=== PATIENT | male | born 1940 | race Hispanic/Latino ===

== ENCOUNTER → 2017-11-18 | Day surgery (SDC) | payer MEDICARE, OTHER ==
[~2017-11-18] MED LIST: ACETAMINOP325 MG/10 PO; CEFTRIAXONE SOD 1 GM VIAL ONE; DEXAMETHASONE SOD PHOS INJ 4 MG/ML VIAL ONE; FENTANYL CITRATE/PF 100MCG/2 ML INJ ONE; HYDRALAZINE HCL 20 MG/ML VIAL ONE; LIDOCAINE HCL 2% LOCAL INJ 5 ML SDV VIAL INJ ONE; MELATONIN5 M2 PO; METOPROLOL SUCC25 MG; METOPROLOL TART25 MG PO; NAMENDA10 MG PO; NAMENDA5 MG PO; ONDANSETRON HCL INJ 2 MG/ML VIAL ONE; PROPOFOL IV EMULSION 10 MG/ML 20 ML VIAL ONE; QUETIAPINE FUMA25 MG PO; SEVOFLURANE INHAL SOLN 250 ML PEN BTL ONE; SINEMET 25-1001 EACH PO; TAMSULOSIN HCL0.4 MG PO
--- NOTE | 2017-11-18 10:31 | Diagnostic Imaging Report ---
PROCEDURE: A single AP view of the chest. COMPARISON: None. INDICATIONS: PRE-OP PROSTATE SURGERY FINDINGS: Lines/tubes: None. Lungs: Moderate lung inflation. There is no evidence of pneumonia or pulmonary edema. Mild patchy left basilar opacity, likely atelectasis. Pleura: There is no pleural effusion or pneumothorax. Heart and mediastinum: The cardiomediastinal silhouette is unremarkable. Bones: No acute bony abnormality. Degenerative changes of bilateral shoulders. IMPRESSION: No acute radiographic abnormality. Dictated by: FAMILIA EASLEY M.D. on 11/18/2017 at 10:39 Electronically approved by: FAMILIA EASLEY M.D. on 11/18/2017 at 10:39
[2017-11-18 14:30] VITALS: BP 164/79
--- NOTE | 2017-11-19 07:11 | Operative Report ---
DATE OF PROCEDURE: November 18, 2017 PREOPERATIVE DIAGNOSES 1. Chronic balanitis. 2. Severe phimosis. 3. Benign prostatic hypertrophy. 4. Prostatic obstruction. POSTOPERATIVE DIAGNOSES 1. Chronic balanitis. 2. Severe phimosis. 3. Benign prostatic hypertrophy. 4. Prostatic obstruction. OPERATIONS PERFORMED 1. Circumcision. 2. Cystourethroscopy. 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 ANESTHETIC: General. Mr. Sadler is a 77-year-old male who was referred by Dr. Dvaid Gamboa with a chief complaint of severe chronic balanitis and prostatic obstruction. This patient was placed on the table in the supine position and was prepped and draped in a sterile manner after satisfactory anesthesia. A collar incision was made about 2 mm proximal to the munguia, incising the skin of the penis. Another collar incision over the chronically infected balanitic foreskin all around, and the infected skin was excised. Hemostasis was obtained all through using the electrocautery at very low power. Both skin edges were then approximated interruptedly using 4-0 Vicryl. Hemostasis was obtained all through and was very adequate. A flexible cystoscopy was then performed, and the urethra was noted to be normal. The prostatic urethra was about 2.5 cm, bilobar and occlusive. Cystoscopy was then performed, and it was noted that the bladder mucosa was normal with no evidence of gross tumor, pathology or any papillary lesions. The bladder wall was moderately trabeculated. Both ureteral orifices were seen and were within normal position, configuration, efflux. The cystoscope was removed. Patient tolerated the procedure well and was taken to the recovery room in satisfactory condition. Plans for this patient are to be placed on Cipro 250 mg 1 twice a day for 1 week. Ultracet tablet 1 every 6 to 8 hours p.r.n. and was given 15. He is to return to the office in about 2 weeks when at that time plans will be made for TURP laser. Job#: [id number]
== END | disposition home or self-care (01) ==
LOC: OR 08:57
PROVIDERS: ATTEND Specialist
DX: N48.1 Balanitis (principal); N47.1 Phimosis; N40.1 Benign prostatic hyperplasia with lower urinary tract symptoms; N13.8 Other obstructive and reflux uropathy; N32.89 Other specified disorders of bladder; G20 Parkinson's disease; I10 Essential (primary) hypertension; D64.9 Anemia, unspecified; I45.10 Unspecified right bundle-branch block; Z86.718 Personal history of other venous thrombosis and embolism
CPT/HCPCS: 52000; 54161; 71045; 88304; J0360; J0696; J1100; J2001; J2405; 88305

== ENCOUNTER → 2017-12-09 | Day surgery (SDC) | payer MEDICARE, OTHER ==
[~2017-12-09] MED LIST changes: -CEFTRIAXONE SOD 1 GM VIAL ONE; +EPHEDRINE SULFATE INJ 50 MG/10 ML SYR ONE; +FUROSEMIDE INJ 10 MG/ML 4 ML VIAL ONE; +HYOSCYAMINE 0.125 MG TAB ONE; +IOPAMIDOL 610MG/1ML 300 MG/ML VIAL IV ONE; +LEVOFLOXACIN 500MG/D5W 100ML 100 ML IV ONE; +SODIUM CHLORIDE 0.9% 1000ML 1,000 ML ONE
--- OUTSIDE RECORDS SUMMARY | 2017-12-09 08:00 | XMS REPORT | Clinical Summary ---
Author Author [facility] Organization [facility] Address Unknown Phone Unavailable Care Team Providers Care Chief Wheelage Clerk Name Role Phone David Gamboa MD PCP Allergies No Known Allergies Current Medications Prescription Sig. Disp. Refills Start End Date Status Date carbidopa-levodopa Take 1 tablet by mouth 3 Active (SINEMET) 25-100 mg per (three) times a day. tablet benazepril (LOTENSIN) 40 Take 40 mg by mouth daily 03/26/19 05/14/19 Discontin MG tablet before breakfast. 18 18 ued NIFEdipine XL (PROCARDIA Take 30 mg by mouth daily 04/05/19 05/14/19 Discontin XL) 30 MG 24 hr tablet before breakfast. 18 18 ued dextromethorphan-quinidin Take 1 capsule by mouth. 05/14/19 Discontin e (NUEDEXTA) 20-10 mg 18 ued capsule sotalol (BETAPACE) 80 MG Take 80 mg by mouth 2 05/14/19 Discontin tablet (two) times a day. 18 ued acetaminophen (TYLENOL) Take 1 tablet (325 mg 120 tablet 0 05/14/19 06/13/19 325 MG tablet total) by mouth 4 (four) 18 18 times a day for 30 days. citalopram (CeleXA) 20 MG Take 1 tablet (20 mg 30 tablet 0 05/14/19 06/13/19 tablet total) by mouth nightly 18 18 for 30 days. lidocaine (LIDODERM) 5 % Place 1 patch on the skin 30 patch 0 05/15/19 06/14/19 daily for 30 days. Remove 18 18 & Discard patch within 12 hours or as directed by MD fuller (CYTOMEL) 5 Take 1 tablet (5 mcg 30 tablet 0 05/15/19 06/14/19 MCG tablet total) by mouth daily for 18 18 30 days. sennosides-docusate Take 2 tablets by mouth 05/14/19 06/13/19 sodium (SENNA WITH nightly as needed for 18 18 DOCUSATE SODIUM) 8.6-50 constipation for up to 30 mg per tablet days. Active Problems Problem Noted Date Parkinson disease (HCC) 05/07/2017 Debility 05/05/2017 Hyperkalemia 05/02/2017 Encounters Date Type Specialty Care Team Description 11/16/2017 Orders Only Procedural Cardiology Last Stevens Preoperative testing (Primary Dx) 11/10/2017 Hospital Radiology Anthony Benitez, Enlarged prostate with Encounter urinary obstruction 10/21/2017 Transcribe Access Anthony Benitez Enlarged prostate with Orders urinary obstruction (Primary Dx) 05/13/2017 Social Work Rehabilitation Karlie Noyola 05/05/2017 [facility] Rehabilitation Brendan Parry MD Parkinson disease - Encounter (Primary Dx) 05/13/2017 05/02/2017 [facility] General Internal Medicine Austin Ross MD Hyperkalemia (Primary - Encounter Sabino Pedro MD Dx); 05/05/2017 Acute renal failure, unspecified acute renal failure type; Dehydration; Syncope and collapse; Hypotension, unspecified hypotension type after 12/08/2016 Social History Tobacco Use Types Packs/Day Years Used Date Never Smoker Smokeless Tobacco: Never Used Tobacco Cessation: Counseling Given: No Alcohol Use Drinks/Week oz/Week Comments No Sex Assigned at Date Recorded Not on file Last Filed Vital Signs Vital Sign Reading Time Taken Blood Pressure 128/78 05/13/2017 8:09 AM CDT Pulse 68 05/13/2017 8:09 AM CDT Temperature 36.3 C (97.4 F) 05/13/2017 8:09 AM CDT Respiratory Rate 20 05/13/2017 8:09 AM CDT Oxygen Saturation 96% 05/12/2017 8:07 PM CDT Inhaled Oxygen - - Concentration Weight 83.1 kg (183 lb 4.8 oz) 05/10/2017 6:27 AM CDT Height 172.7 cm (5' 8") 05/05/2017 8:11 PM CDT Body Mass Index 27.87 05/10/2017 6:27 AM CDT Plan of Treatment Health Maintenance Due Date Last Done Comments SHINGRIX VACCINE (#1) 1989 ZOSTER VACCINE 1999 PNEUMOCOCCAL 01/20/2004 POLYSACCHARIDE VACCINE AGE 65 AND OVER PNEUMOCOCCAL-13 01/20/2004 INFLUENZA VACCINE 09/16/2017 Procedures Procedure Name Priority Date/Time Associated Diagnosis Comments ECG 12-LEAD Routine 11/16/2017 Preoperative testing Results for this 12:29 PM CDT procedure are in the results section. US PROSTATE Routine 11/10/2017 Enlarged prostate with Results for this 2:12 PM CDT urinary obstruction procedure are in the results section. ZZESTIMATED GFR Routine 05/13/2017 Results for this 4:48 AM CDT procedure are in the results section. BASIC METABOLIC PANEL Routine 05/13/2017 Results for this 4:48 AM CDT procedure are in the results section. HC COMPLETE BLD COUNT Routine 05/13/2017 Results for this W/AUTO DIFF 4:48 AM CDT procedure are in the results section. POC GLUCOSE Routine 05/11/2017 Results for this 8:45 AM CDT procedure are in the results section. ZZESTIMATED GFR Routine 05/11/2017 Results for this 4:45 AM CDT procedure are in the results section. THYROID STIMULATING Routine 05/11/2017 Results for this HORMONE 4:45 AM CDT procedure are in the results section. T4, FREE Routine 05/11/2017 Results for this 4:45 AM CDT procedure are in the results section. T3, FREE Routine 05/11/2017 Results for this 4:45 AM CDT procedure are in the results section. BASIC METABOLIC PANEL Routine 05/11/2017 Results for this 4:45 AM CDT procedure are in the results section. HC COMPLETE BLD COUNT Routine 05/11/2017 Results for this W/AUTO DIFF 4:45 AM CDT procedure are in the results section. ZZESTIMATED GFR Routine 05/10/2017 Results for this 4:45 AM CDT procedure are in the results section. BASIC METABOLIC PANEL Routine 05/10/2017 Results for this 4:45 AM CDT procedure are in the results section. ZZESTIMATED GFR Routine 05/06/2017 Results for this 6:22 AM CDT procedure are in the results section. HC COMPLETE BLD COUNT Routine 05/06/2017 Results for this W/AUTO DIFF 6:22 AM CDT procedure are in the results section. BASIC METABOLIC PANEL Routine 05/06/2017 Results for this 6:22 AM CDT procedure are in the results section. ZZESTIMATED GFR Routine 05/05/2017 Results for this 6:59 AM CDT procedure are in the results section. HC COMPLETE BLD COUNT Routine 05/05/2017 Results for this W/AUTO DIFF 6:59 AM CDT procedure are in the results section. BASIC METABOLIC PANEL Routine 05/05/2017 Results for this 6:59 AM CDT procedure are in the results section. ZZESTIMATED GFR Routine 05/04/2017 Results for this 5:43 AM CDT procedure are in the results section. PROSTATE SPECIFIC ANTIGEN Routine 05/04/2017 Results for this 5:43 AM CDT procedure are in the results section. HC COMPLETE BLD COUNT Routine 05/04/2017 Results for this W/AUTO DIFF 5:43 AM CDT procedure are in the results section. BASIC METABOLIC PANEL Routine 05/04/2017 Results for this 5:43 AM CDT procedure are in the results section. URINALYSIS SCREEN AND Routine 05/03/2017 Results for this MICROSCOPY, WITH REFLEX 5:36 PM CDT procedure are in the TO CULTURE results section. URINE CULTURE Routine 05/03/2017 Results for this 5:36 PM CDT procedure are in the results section. ZZESTIMATED GFR Routine 05/03/2017 Results for this 4:01 AM CDT procedure are in the results section. COMPREHENSIVE METABOLIC Routine 05/03/2017 Results for this PANEL 4:01 AM CDT procedure are in the results section. HC COMPLETE BLD COUNT Routine 05/03/2017 Results for this W/AUTO DIFF 4:01 AM CDT procedure are in the results section. THYROID STIMULATING Routine 05/03/2017 Results for this HORMONE 4:01 AM CDT procedure are in the results section. T4, FREE Routine 05/03/2017 Results for this 4:01 AM CDT procedure are in the results section. T3, FREE Routine 05/03/2017 Results for this 4:01 AM CDT procedure are in the results section. TROPONIN Timed 05/02/2017 Results for this 7:36 PM CDT procedure are in the results section. XR CHEST 1 VW PORTABLE STAT 05/02/2017 Results for this 4:57 PM CDT procedure are in the results section. ECG 12-LEAD STAT 05/02/2017 Results for this 4:09 PM CDT procedure are in the results section. CT HEAD WO CONTRAST STAT 05/02/2017 Results for this 4:04 PM CDT procedure are in the results section. LACTIC ACID LEVEL, SEPSIS STAT 05/02/2017 Results for this - NOW AND REPEAT 2X EVERY 3:47 PM CDT procedure are in the 3 HOURS results section. ZZESTIMATED GFR STAT 05/02/2017 Results for this 3:47 PM CDT procedure are in the results section. CREATINE KINASE, TOTAL STAT 05/02/2017 Results for this (CPK) 3:47 PM CDT procedure are in the results section. TROPONIN STAT 05/02/2017 Results for this 3:47 PM CDT procedure are in the results section. COMPREHENSIVE METABOLIC STAT 05/02/2017 Results for this PANEL 3:47 PM CDT procedure are in the results section. PARTIAL THROMBOPLASTIN STAT 05/02/2017 Results for this TIME (PTT) 3:47 PM CDT procedure are in the results section. PROTHROMBIN TIME WITH INR STAT 05/02/2017 Results for this 3:47 PM CDT procedure are in the results section. HC COMPLETE BLD COUNT STAT 05/02/2017 Results for this W/AUTO DIFF 3:47 PM CDT procedure are in the results section. ECG ED PRELIMINARY Routine 05/02/2017 Results for this INTERPRETATION 3:22 PM CDT procedure are in the results section. after 12/08/2016 Results * ECG 12 lead (11/16/2017 12:29 PM) Only the most recent of 2 results within the time period is included. Ventricular rate 58 [facility] Atrial rate 58 [facility] VT interval 106 [facility] QRSD interval 138 [facility] QT interval 438 [facility] QTC interval 429 [facility] P axis 1 30 [facility] QRS axis 1 270 [facility] T wave axis 20 [facility] EKG impression Sinus bradycardia with short [facility] VT-Left axis deviation-Right bundle branch block-Possible Lateral infarct (cited on or before 02-MAY-2017)-Inferior infarct (cited on or before 02-MAY-2017)-Abnormal ECG-In automated comparison with ECG of 02-MAY-2017 16:09,-Left anterior fascicular block is no longer present-Right bundle branch block is now present-Questionable change in initial forces of Lateral leads- Performing Organization Address City/State/Zipcode Phone Number [facility] [place] [address] [place] [address] * US Prostate (11/10/2017 2:12 PM) Narrative Performed At PROCEDURE:US PROSTATE RADIANT CLINICAL HISTORY:N40.1 Benign prostatic hyperplasia with lower urinary tract symptoms, N13.8 Other obstructive and reflux uropathy, N40.1 COMPARISON:None. TECHNIQUE: A transrectal examination of the prostate gland was performed in transverse and sagittal views with color-flow Doppler interrogation. The seminal vesicles were also interrogated. FINDINGS: The prostate gland measures 4.6 cm x 5 cm x 2.2 cm for volume of 26.9 mL. The peripheral zone is homogeneous. No focal lesions are identified. Heterogeneity in echotexture is demonstrated of the central zone with calcification of the prostate at the junction of the central and peripheral zone. No gross abnormality of the seminal vesicles is seen. IMPRESSION: Abnormal study. Mild prostatic enlargement with prostatic calcification. No focal lesions are identified in the peripheral zone. No gross abnormality of the seminal vesicles is seen. [id number] . Procedure Note Interface, Radiology Results Incoming - 11/10/2017 3:22 PM CDT PROCEDURE: US PROSTATE CLINICAL HISTORY: N40.1 Benign prostatic hyperplasia with lower urinary tract symptoms, N13.8 Other obstructive and reflux uropathy, N40.1 COMPARISON: None. TECHNIQUE: A transrectal examination of the prostate gland was performed in transverse and sagittal views with color-flow Doppler interrogation. The seminal vesicles were also interrogated. FINDINGS: The prostate gland measures 4.6 cm x 5 cm x 2.2 cm for volume of 26.9 mL. The peripheral zone is homogeneous. No focal lesions are identified. Heterogeneity in echotexture is demonstrated of the central zone with calcification of the prostate at the junction of the central and peripheral zone. No gross abnormality of the seminal vesicles is seen. IMPRESSION: Abnormal study. Mild prostatic enlargement with prostatic calcification. No focal lesions are identified in the peripheral zone. No gross abnormality of the seminal vesicles is seen. [id number] . Performing Organization Address City/State/Zipcode Phone Number [place] [address] [place] [address] * Estimated GFR (05/13/2017 4:48 AM) Only the most recent of 8 results within the time period is included. GFR Non Af Amer 39 (A) mL/min/1.73 m2 [facility] DEPARTMENT OF PATHOLOGY AND GENOMIC MEDICINE GFR Af Amer 47 (A) mL/min/1.73 m2 [facility] DEPARTMENT OF Comment: PATHOLOGY AND Chronic kidney disease: <60 GENOMIC MEDICINE mL/min/1.73m2 Kidney failure: <15 mL/min/1.73m2 The estimated GFR is calculated from the IDMS-traceable Modification of Diet in Renal Disease Equation. The accuracy of the calculation is poor when the creatinine is normal. Calculated values >90 mL/min/1.73m2 are not reported. This equation has not been validated in children (<18 years), women, the elderly (>70 years), or ethnic groups other than Caucasians and Americans. Specimen Plasma specimen Performing Organization Address City/State/Zipcode Phone Number [place] [address] [place] [address] PATHOLOGY AND [employer] [facility] * CBC with platelet and differential (05/13/2017 4:48 AM) Only the most recent of 7 results within the time period is included. WBC 9.4 4.2 - 11.0 k/uL [facility] DEPARTMENT OF PATHOLOGY AND GENOMIC MEDICINE RBC 4.45 4.04 - 5.86 m/uL [facility] DEPARTMENT OF PATHOLOGY AND GENOMIC MEDICINE HGB 13.1 13.0 - 17.3 g/dL [facility] DEPARTMENT OF PATHOLOGY AND GENOMIC MEDICINE HCT 41.2 34.0 - 45.0 % [facility] DEPARTMENT OF PATHOLOGY AND GENOMIC MEDICINE MCV 92.6 80.0 - 98.0 fL [facility] DEPARTMENT OF PATHOLOGY AND GENOMIC MEDICINE MCH 29.4 27.0 - 34.0 pg [facility] DEPARTMENT OF PATHOLOGY AND GENOMIC MEDICINE MCHC 31.8 31.5 - 36.5 g/dL [facility] DEPARTMENT OF PATHOLOGY AND GENOMIC MEDICINE RDW - SD 50.0 37.0 - 51.0 fL [facility] DEPARTMENT OF PATHOLOGY AND GENOMIC MEDICINE MPV 10.1 7.4 - 10.4 fL [facility] DEPARTMENT OF PATHOLOGY AND GENOMIC MEDICINE Platelet count 227 150 - 400 k/uL [facility] DEPARTMENT OF PATHOLOGY AND GENOMIC MEDICINE Nucleated RBC 0.00 /100 WBC [facility] DEPARTMENT OF PATHOLOGY AND [employer] MEDICINE Neutrophils 72.4 (H) 36.0 - 66.0 % [facility] DEPARTMENT OF PATHOLOGY AND [employer] MEDICINE Lymphocytes 13.7 (L) 24.0 - 44.0 % [facility] DEPARTMENT OF PATHOLOGY AND GENOMIC MEDICINE Monocytes 9.6 (H) 0.0 - 6.0 % [facility] DEPARTMENT OF PATHOLOGY AND [employer] MEDICINE Eosinophils 2.4 0.0 - 6.0 % [facility] DEPARTMENT PATHOLOGY AND [employer] MEDICINE Basophils 0.4 0.0 - 1.2 % [facility] PATHOLOGY AND [employer] MEDICINE Immature granulocytes 1.5 (H) 0.0 - 1.0 % [facility] PATHOLOGY AND [employer] MEDICINE Specimen Blood Performing Organization Address City/[facility]/Zipcode Phone Number [address] [place] [phone] [place] [address] * Basic metabolic panel (05/13/2017 4:48 AM) Only the most recent of 6 results within the time period is included. Sodium 134 (L) 135 - 150 mEq/L [facility] DEPARTMENT OF PATHOLOGY AND [employer] MEDICINE Potassium 4.4 3.5 - 5.0 mEq/L [facility] DEPARTMENT OF PATHOLOGY AND [employer] MEDICINE Chloride 100 100 - 109 mEq/L [facility] DEPARTMENT PATHOLOGY AND [employer] MEDICINE CO2 25 24 - 32 mmol/L [facility] DEPARTMENT PATHOLOGY AND [employer] MEDICINE Anion gap 9 7 - 15 mEq/L [facility] DEPARTMENT OF Comment: PATHOLOGY AND Starting from May [facility] , anion gap calculation no longer incorporates potassium. Please note the change. BUN 38 (H) 7 - 18 mg/dL [facility] DEPARTMENT OF PATHOLOGY AND [employer] MEDICINE Creatinine 1.7 (H) 0.8 - 1.5 mg/dL [facility] DEPARTMENT OF PATHOLOGY AND [employer] MEDICINE Glucose 92 65 - 100 mg/dL [facility] DEPARTMENT PATHOLOGY AND [employer] MEDICINE Calcium 8.9 8.6 - 10.7 mg/dL [facility] DEPARTMENT PATHOLOGY AND [employer] MEDICINE Specimen Plasma specimen Performing Organization Address City/[facility]/Zipcode Phone Number [address] [place] [phone] [place] [address] [employer] [facility] * POC glucose (05/11/2017 8:45 AM) POC glucose 115 (H) 65 - 100 mg/dL [facility] DEPARTMENT OF Comment: PATHOLOGY AND Meter ID: [id number] GENOMIC MEDICINE Bi Application Developer: Zayra Macedo Performing Organization Address City/[facility] Phone Number [facility] [address] [place] [address] PATHOLOGY AND GENOMIC MEDICINE * T3, free (05/11/2017 4:45 AM) Only the most recent of 2 results within the time period is included. T3, free 2.65 2.18 - 3.98 pmol/L [facility] DEPARTMENT OF PATHOLOGY AND GENOMIC MEDICINE Specimen Plasma specimen Performing Organization Address [facility] [place] [address] PATHOLOGY AND GENOMIC MEDICINE * Thyroid stimulating hormone (05/11/2017 4:45 AM) Only the most recent of 2 results within the time period is included. TSH 0.37 (L) 0.38 - 4.82 uIU/mL [facility] DEPARTMENT OF PATHOLOGY AND GENOMIC MEDICINE Specimen Plasma specimen Performing Organization Address [facility] [place] [address] PATHOLOGY AND GENOMIC MEDICINE * T4, free (05/11/2017 4:45 AM) Only the most recent of 2 results within the time period is included. T4, free 1.60 0.70 - 1.61 ng/dL [facility] DEPARTMENT OF PATHOLOGY AND GENOMIC MEDICINE Specimen Plasma specimen Performing Organization Address [facility] [place] [address] PATHOLOGY AND GENOMIC MEDICINE * Prostate specific antigen (05/04/2017 5:43 AM) PSA 1.2 0.0 - 4.0 ng/mL [facility] DEPARTMENT OF Comment: PATHOLOGY AND The ISABEL 8000 PSA immunoassay [facility] was used. Results obtained with different assay methods or kits should not be used interchangeably and may be different. Specimen Plasma specimen Performing Organization Address City/[facility] Centercode Phone Number [facility] DEPARTMENT [address] [place] [address] PATHOLOGY AND GENOMIC MEDICINE * Urinalysis screen and microscopy, with reflex to culture (05/03/2017 5:36 PM) Specimen site Clean catch [facility] DEPARTMENT OF PATHOLOGY AND GENOMIC MEDICINE Color, UA Yellow [facility] DEPARTMENT OF PATHOLOGY AND GENOMIC MEDICINE Appearance, UA Clear [facility] DEPARTMENT OF PATHOLOGY AND GENOMIC MEDICINE Specific gravity, UA 1.016 1.001 - 1.035 [facility] DEPARTMENT OF PATHOLOGY AND GENOMIC MEDICINE pH, UA 5.0 5.0 - 8.5 [facility] DEPARTMENT OF PATHOLOGY AND GENOMIC MEDICINE Protein, UA Negative Negative [facility] DEPARTMENT OF PATHOLOGY AND GENOMIC MEDICINE Glucose, UA 1+ (A) Negative [facility] DEPARTMENT OF PATHOLOGY AND GENOMIC MEDICINE Ketones, UA Negative Negative [facility] DEPARTMENT OF PATHOLOGY AND GENOMIC MEDICINE Bilirubin, UA Negative Negative [facility] DEPARTMENT OF PATHOLOGY AND GENOMIC MEDICINE Blood, UA Small (A) Negative [facility] DEPARTMENT OF PATHOLOGY AND GENOMIC MEDICINE Nitrite, UA Negative Negative [facility] DEPARTMENT OF PATHOLOGY AND GENOMIC MEDICINE Urobilinogen, UA Negative <2.0 [facility] DEPARTMENT OF PATHOLOGY AND GENOMIC MEDICINE Leukocyte esterase, UA Negative Negative [facility] DEPARTMENT OF PATHOLOGY AND GENOMIC MEDICINE Epithelial cells, UA Few /HPF [facility] DEPARTMENT OF PATHOLOGY AND GENOMIC MEDICINE Round epithelial cells, Few 0 - 1 /HPF [facility] DEPARTMENT OF PATHOLOGY AND GENOMIC MEDICINE WBC, UA 3 (H) 0 - 1 /HPF [facility] DEPARTMENT OF PATHOLOGY AND GENOMIC MEDICINE RBC, UA 2 0 - 1 /HPF [facility] DEPARTMENT OF PATHOLOGY AND GENOMIC MEDICINE Bacteria, UA None seen None seen [facility] DEPARTMENT OF PATHOLOGY AND GENOMIC MEDICINE WBC clumps, UA Few (A) [facility] DEPARTMENT OF PATHOLOGY AND GENOMIC MEDICINE Yeast, UA None seen [facility] DEPARTMENT OF PATHOLOGY AND GENOMIC MEDICINE Yeast with pseudohyphae, None seen [facility] DEPARTMENT [facility] PATHOLOGY AND GENOMIC MEDICINE Specimen Urine Performing Organization Address City/[facility]/Zipcode Phone Number [place] [phone] PATHOLOGY AND GENOMIC MEDICINE * Urine culture (05/03/2017 5:36 PM) Urine culture SEE COMMENTComment: [facility] DEPARTMENT OF Bacteriuria screen negative. PATHOLOGY AND GENOMIC MEDICINE Specimen Urine Performing Organization Address City/[facility]/[place] [address] PATHOLOGY AND GENOMIC MEDICINE * Comprehensive metabolic panel (05/03/2017 4:01 AM) Only the most recent of 2 results within the time period is included. Sodium 138 135 - 150 mEq/L [facility] DEPARTMENT OF PATHOLOGY AND GENOMIC MEDICINE Potassium 5.0 3.5 - 5.0 mEq/L [facility] DEPARTMENT OF PATHOLOGY AND GENOMIC MEDICINE Chloride 110 (H) 100 - 109 mEq/L [facility] DEPARTMENT OF PATHOLOGY AND [employer] MEDICINE CO2 19 (L) 24 - 32 mmol/L [facility] DEPARTMENT OF PATHOLOGY AND [employer] MEDICINE Anion gap 9 7 - 15 mEq/L [facility] DEPARTMENT OF Comment: PATHOLOGY AND Starting from May [facility] MEDICINE , anion gap calculation no longer incorporates potassium. Please note the change. BUN 45 (H) 7 - 18 mg/dL [facility] DEPARTMENT OF PATHOLOGY AND [employer] MEDICINE Creatinine 1.7 (H) 0.8 - 1.5 mg/dL [facility] DEPARTMENT OF PATHOLOGY AND [employer] MEDICINE Glucose 70 65 - 100 mg/dL [facility] DEPARTMENT OF PATHOLOGY AND [employer] MEDICINE Calcium 8.5 (L) 8.6 - 10.7 mg/dL [facility] DEPARTMENT OF PATHOLOGY AND [employer] MEDICINE Protein 6.5 6.3 - 8.2 g/dL [facility] DEPARTMENT OF PATHOLOGY AND [employer] MEDICINE Albumin 3.2 3.2 - 5.0 g/dL [facility] DEPARTMENT OF PATHOLOGY AND [employer] MEDICINE A/G ratio 1.0 0.7 - 3.8 [facility] DEPARTMENT OF PATHOLOGY AND [employer] MEDICINE Alkaline phosphatase 70 30 - 120 U/L [facility] DEPARTMENT OF PATHOLOGY AND [employer] MEDICINE AST 13 (L) 15 - 37 U/L [facility] DEPARTMENT OF PATHOLOGY AND [employer] MEDICINE ALT <6 (L) 30 - 65 U/L [facility] DEPARTMENT OF PATHOLOGY AND [employer] MEDICINE Total bilirubin 0.9 0.2 - 1.2 mg/dL [facility] DEPARTMENT OF PATHOLOGY AND [employer] MEDICINE Specimen Plasma specimen Performing Organization Address City/State/Zipcode Phone Number [facility] [address] [place] [phone] PATHOLOGY AND [employer] MEDICINE * Troponin (05/02/2017 7:36 PM) Only the most recent of 2 results within the time period is included. Troponin <0.01 0.00 - 0.60 ng/mL [facility] DEPARTMENT OF Comment: PATHOLOGY AND 0.11 - 1.49 GENOMIC MEDICINE ng/mlMay indicate increased risk of acute coronary syndrome. >=1.5 ng/ml Consistent with acute myocardial infarction. The diagnostic value of a single normal or non-diagnostic result is questionable.Serial samples at 2-6 hour intervals are required to rule out acute myocardial injury. Specimen Plasma specimen Performing Organization Address City/State/Zipcode Phone Number [place] [phone] [facility] [place] [address] PATHOLOGY AND GENOMIC MEDICINE * XR Chest 1 Vw Portable (05/02/2017 4:57 PM) Narrative Performed At EXAMINATION:XR CHEST 1 VW PORTABLE [facility] CLINICAL HISTORY:weakness COMPARISON:There are no prior comparable exams at this institution. IMPRESSION: 1. Heart size is normal for technique. 2. Lungs are clear. 3. No evidence of pleural effusion or pneumothorax. [facility]-[id number] Procedure Note Interface, Radiology Results Incoming - 05/02/2017 5:04 PM CDT EXAMINATION: XR CHEST 1 VW PORTABLE CLINICAL HISTORY: weakness COMPARISON: There are no prior comparable exams at this institution. IMPRESSION: 1. Heart size is normal for technique. 2. Lungs are clear. 3. No evidence of pleural effusion or pneumothorax. [facility]-[id number] Performing Organization Address City/State/Zipcode Phone Number [facility] [address] [place] [address] * CT Head Wo Contrast (05/02/2017 4:04 PM) Narrative Performed At EXAMINATION: CT HEAD WO CONTRAST [facility] CLINICAL HISTORY: tongue deviation to Runclear how longdizzyfall COMPARISON:None TECHNIQUE: Noncontrast enhanced images of the brain were obtained from the skull base to the vertex. Both soft tissue and bone reconstruction algorithms were performed.CT imaging was performed with iterative reconstruction technique and/or automated exposure control to reduce radiation dose. FINDINGS: The brain parenchyma has no acute lesion. The carrion-white matter differentiation is preserved. No evidence of acute intra or extra-axial hemorrhage, mass, mass effect or acute territorial infarction. There is no acute hydrocephalus. Basal cisterns are patent. There is moderate diffuse atrophy with prominence of the sulci and ventricles. There are lucencies throughout the white matter from chronic small vessel changes. No definite acute parenchymal lesion identified by CT. No acute soft tissue hematoma or laceration. Prior endoscopic sinus surgery changes are noted on the right. There are some mucosal thickening and sinus wall thickening of the right maxillary sinus. Calvarium is intact. IMPRESSION: There are involutional changes as detailed above with no acute intracranial abnormality. [facility]-[id number] Procedure Note Interface, Radiology Results Incoming - 05/02/2017 4:10 PM CDT EXAMINATION: CT HEAD WO CONTRAST CLINICAL HISTORY: tongue deviation to R unclear how long dizzy fall COMPARISON: None TECHNIQUE: Noncontrast enhanced images of the brain were obtained from the skull base to the vertex. Both soft tissue and bone reconstruction algorithms were performed. CT imaging was performed with iterative reconstruction technique and/or automated exposure control to reduce radiation dose. FINDINGS: The brain parenchyma has no acute lesion. The carrion-white matter differentiation is preserved. No evidence of acute intra or extra-axial hemorrhage, mass, mass effect or acute territorial infarction. There is no acute hydrocephalus. Basal cisterns are patent. There is moderate diffuse atrophy with prominence of the sulci and ventricles. There are lucencies throughout the white matter from chronic small vessel changes. No definite acute parenchymal lesion identified by CT. No acute soft tissue hematoma or laceration. Prior endoscopic sinus surgery changes are noted on the right. There are some mucosal thickening and sinus wall thickening of the right maxillary sinus. Calvarium is intact. IMPRESSION: There are involutional changes as detailed above with no acute intracranial abnormality. [facility]-[id number] Performing Organization Address [facility]/Zipcode Phone Number [facility] [address] [place] [address] * Lactic acid level, SEPSIS - Now and repeat 2x every 3 hours (05/02/2017 3:47 PM) Lactic acid 1.4 0.5 - 2.2 mmol/L [facility] DEPARTMENT OF PATHOLOGY AND [employer] MEDICINE Specimen Blood Performing Organization Address [facility] Phone Number [place] [phone] PATHOLOGY AND [employer] MEDICINE * Partial thromboplastin time, activated (05/02/2017 3:47 PM) PTT 28.3 23.0 - 36.0 sec [facility] DEPARTMENT OF Comment: PATHOLOGY AND PTT therapeutic range for [facility] unfractionated heparin is 61.0-112.0 seconds which corresponds to Anti-Xa 0.3-0.7 U/ml. Note:Change in Panic Value The PTT Panic Value is changing from 110 sec. to 100 sec. due to new instrumentation and reagents. Correlation studies have been performed to validate this result. Specimen Blood Performing Organization Address [facility]ode Phone Number [address] [address] PATHOLOGY AND [employer] MEDICINE * Prothrombin time with INR (05/02/2017 3:47 PM) Prothrombin time 14.5 12.0 - 15.0 sec [facility] DEPARTMENT OF PATHOLOGY AND GENOMIC MEDICINE INR 1.11 0.92 - 1.12 [facility] DEPARTMENT OF Comment: PATHOLOGY AND For patients on anticoagulant GENOMIC MEDICINE therapy, reference ranges below: Indication: INR Value Treatment of Venous Thrombosis, 2.0-3.0 pulmonary emboli, or prophylaxis of a venous thrombosis, or systemic emboli. High dose, high risk patients 3.0-4.5 with mechanical valves. NOTE:INR values over 3.0 are sometimes associated with gastrointestinal hemorrhage, especially values over 4.0. Specimen Blood Performing Organization Address City/[facility] [address] PATHOLOGY AND GENOMIC MEDICINE * Creatine kinase, total (CPK) (05/02/2017 3:47 PM) Creatine kinase 90 61 - 224 U/L [facility] DEPARTMENT OF PATHOLOGY AND GENOMIC MEDICINE Specimen Plasma specimen Performing Organization Address [facility] [place] [address] PATHOLOGY AND GENOMIC MEDICINE * ECG ED Preliminary Interpretation - NOT AN ORDER (05/02/2017 3:22 PM) Narrative Performed At Austin Ross MD 05/02/20178:39 PM ECG ED Preliminary Interpretation - Not an Order Performed by: AUSTIN ROSS Authorized by: AUSTIN ROSS ECG reviewed by ED Physician in the absence of a correspondence analyst: yes Interpretation: Interpretation: normal Rate: ECG rate:60 ECG rate assessment: normal Rhythm: Rhythm: sinus rhythm Ectopy: Ectopy: none QRS: QRS axis:Normal Conduction: Conduction: normal ST segments: ST segments:Normal T waves: T waves: normal Q waves: Q waves:AVF, II and V6 Comments: Completed on 05/02/2017 at 1600. after 12/08/2016 Insurance Payer Benefit Subscriber ID Type Phone Address Plan / Group AETNA AETNA PPO xxxxxxxxxx PPO OPEN CHOICE MEDICARE MEDICARE xxxxxxxxxx Medicare [place], [place] PART A AND B [place] [id number]
--- OUTSIDE RECORDS SUMMARY | 2017-12-09 08:01 | XMS REPORT ---
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 Allergies, Adverse Reactions, Alerts This patient has no known allergies or adverse reactions. Medications This patient has no known medications. Results Test Description Test Time Test Comments Text Results Atomic Results Result Comments CHEST SINGLE (PORTABLE) 2017-11-18 10:39:00 [place] [address] Patient Name: PEG FERMIN MR #: [id number] : 1940 Age/Sex: 77/M Req #: [id number] Adm Physician: Ordered by: MATY RICE MD Report #: [id number] Location: OR Room/Bed: Procedure: [id number] DX/CHEST SINGLE (PORTABLE) Exam Date: Exam Time: REPORT STATUS: Signed PROCEDURE: A single AP view of the chest. COMPARISON: None. INDICATIONS: PRE-OP PROSTATE SURGERY FINDINGS: Lines/tubes: None. Lungs: Moderate lung inflation. There is no evidence of pneumonia or pulmonary edema. Mild patchy left basilar opacity, likely atelectasis. Pleura: There is no pleural effusion or pneumothorax. Heart and mediastinum: The cardiomediastinal silhouette is unremarkable. Bones: No acute bony abnormality. Degenerative changes of bilateral shoulders. IMPRESSION: No acute radiographic abnormality. Dictated by: FAMILIA EASLEY M.D. on 11/18/2017 at 10:39 Electronically approved by: FAMILIA EASLEY M.D. on 11/18/2017 at 10:39 Dictated By: FAMILIA EASLEY MD [id number] Transcribed By: SHAQUILLE on 11/18/17 1039 COPY TO: MATY RICE MD
--- NOTE | 2017-12-09 13:19 | Operative Report ---
DATE OF PROCEDURE: December 09, 2017 PREOPERATIVE DIAGNOSES 1. Benign prostatic hypertrophy. 2. Prostatic obstruction. POSTOPERATIVE DIAGNOSES 1. Benign prostatic hypertrophy. 2. Prostatic obstruction. OPERATIONS PERFORMED 1. Cystourethroscopy. 2. Transurethral resection of the prostate laser XPS. ANESTHETIC: General. Mr. Sadler is a 77-year-old male who presented with a chief complaint of lower urinary tract obstructive symptoms. Rectal exam showed an enlarged prostate gland about 40 to 50 grams, smooth, firm and benign. His PSA was normal. This patient was placed on the table in the lithotomy position and was prepped and draped in a sterile manner after satisfactory anesthesia. A number 23.5 cystoresectoscope was used, and cystourethroscopy was performed and confirmed the previous cystoscopic findings. The XPS laser scope generator was then started, starting at 120 márquez vaporization level and 40 márquez coagulation level. Vaporization of the prostate was then started, starting from 1 to 5 o'clock, starting at the bladder neck to just proximal to the verumontanum and down to the capsular fibers. Hemostasis was obtained all through and was very adequate. Vaporization was then started, starting again from 11 to 7 o'clock, again starting at the bladder neck to just proximal to the verumontanum and down to the capsular fibers. Again hemostasis was obtained all through and was very adequate. Finally, the anterior tissue was vaporized. At the termination of the procedure, it was noted that the bladder mucosa, both ureteral orifices and the external sphincter were intact without laser energy damage. The laser scope generator was shut down. The cystoresectoscope was removed, and a number 22-Turkish Escobar catheter was placed. Plans for this patient are to be discharged home on Cipro 500 mg 1 twice a day for 1 wk. Ultracet tablet 1 every 6 to 8 hours p.r.n. and was given 30. He is to return to the office tomorrow for the Escobar catheter removal. Estimated blood loss was 0 mL. Job#: [id number]
[2017-12-09 14:45] VITALS: BP 178/94
== END | disposition home or self-care (01) ==
LOC: OR 07:58
PROVIDERS: ATTEND Specialist
DX: N40.1 Benign prostatic hyperplasia with lower urinary tract symptoms (principal); N13.8 Other obstructive and reflux uropathy; I10 Essential (primary) hypertension; G31.83 Neurocognitive disorder with Lewy bodies; F02.80 Dementia in other diseases classified elsewhere, unspecified severity, without behavioral disturbance, psychotic disturbance, mood disturbance, and anxiety
CPT/HCPCS: 36415; 52648; 84132; J0360; J1100; J1940; J1956; J2001; J2405; J7030